=== PATIENT | male | born 2000 | race Caucasian/White ===

== ENCOUNTER 2022-09-29 03:35 | Outpatient (CLI) | payer BC, SELFPAY ==
--- NOTE | 2022-09-29 09:19 | PDOC.EEG ---
Neurology EEG EEG: [facility] Department of Neurology EEG REPORT Date of Recordin09/29/22 Interpreting Physician: Dr. Georgina Spears PCP/Referring Provider: Dewey Alcocer NP Reason for study: Rodney is a 21 year-old with recent spell of LOC results in fall with skull fracture. Current Medications: Home Medications Medication Instructions Recorded Confirmed Type multivitamin (Daily Vitamin tablet) 1 ea PO DAILY 05/31/14 History METHODS: A 21 channel digitized electroencephalogram was performed in the [facility]. The 10/20 international system of electrode placement was used and bipolar and referential electrode montages were recorded. In addition to EEG the patient was monitored for EKG and lateral/vertical eye movements. Activation procedures of photic stimulation and hyperventilation were performed if applicable. Video was used during activation procedures and during events where applicable. The duration of the recording was 30 minutes. DESCRIPTION OF EEG: The patient was noted to be awake, drowsy, and asleep during the recording. During maximal wakefulness a 9-Hz posterior background rhythm was present which was well-modulated, symmetrical, reactive to eye opening, and of moderate voltage. With eye opening the background activity changed to a low voltage mixture of alpha, beta, and occasional theta range frequencies. Faster frequencies were present in the bilateral anterior head regions. There was a normal anterior-posterior voltage gradient. During drowsiness, there was attenuation of the posterior dominant background rhythm and vertex waves. Stage II sleep was present with symmetrical sleep spindles, K-complexes, and vertex waves. Activating Procedures: Photic stimulation was performed which produced no posterior driving response. Hyperventilation was performed with moderate effort and produced mild physiological slowing of the background. EKG: EKG revealed normal sinus rhythm/sinus bradycardia. INTERPRETATION: This EEG is normal during the awake and sleep states as well as during photic stimulation and hyperventilation. PRIOR EEG: none CLINICAL CORRELATION: No focal regions of cerebral dysfunction or epileptiform activity was present. Epilepsy remains a clinical diagnosis and a normal EEG does not rule out epilepsy. Clinical correlation is advised. Georgina Spears MD
== END 2022-09-29 03:36 | disposition home or self-care (01) ==
LOC: RT 03:36
PROVIDERS: PCP Nurse Practitioner Pediatrics; Visit Provider Nurse Practitioner Pediatrics
DX: R55 Syncope and collapse (principal)
CPT/HCPCS: 95819

== ENCOUNTER 2022-10-09 01:39 | Outpatient (CLI) | payer BC, SELFPAY ==
--- NOTE | 2022-10-09 06:45 | DI.MRI_ITS ---
Exam(s) MR BRAIN WO EXAM: MR BRAIN WO CLINICAL HISTORY: syncope with urinary incontinence,[id number] TECHNIQUE: Multiplanar multisequence MRI of the brain was performed. COMPARISON: No exams were available for comparison FINDINGS: CEREBRAL PARENCHYMA: There is no evidence of intracranial hemorrhage, mass effect, or shift of midline structures. There are no extra-axial fluid collections. Ventricles are not enlarged or shifted. There is no significant focal signal abnormality in the cerebellar hemispheres nor within the javier, m idbrain, and thalami. No evidence of cerebellar tonsillar ectopia. There is no abnormal signal abnormality in the periventricular white matter. No evidence of demyelin ation. No evidence of obvious mesial temporal sclerosis. No abnormal signal evident in the medial temporal lobes. No abnormal signal in the region of the amygdalae. DWI: No restricted diffusion. There is no significant focal signal abnormality evident on diffusion imaging to suggest acute ischemic event. SWI: No evidence of microhemorrhages. PITUITARY GLAND: No mass nor parasellar abnormality. No obvious abnormality in the cavernous sinuses. FLOW VOIDS: The expected flow void are noted. No evidence of obvious aneurysm nor obvious vascular ma lformation. PARANASAL SINUSES: The visualized paranasal sinuses appear unremarkable. No obvious finding left fron susan sinus is not developed. ORBITS: No obvious findings. IMPRESSION: No significant intracranial findings on this noninfused MRI scan of the brain. DATA REPOSITORY:
== END 2022-10-09 01:59 ==
PROVIDERS: PCP Nurse Practitioner Pediatrics; Visit Provider Nurse Practitioner Pediatrics
DX: R55 Syncope and collapse (principal)
CPT/HCPCS: 70551